=== PATIENT | male | born 1995 | race African-American/Black ===

== ENCOUNTER 2019-06-20 15:29 | Emergency (ER) | payer SELFPAY ==
[~2019-06-20] VITALS: Ht 190.5 cm; Wt 82.0 kg
--- NOTE | 2019-06-20 15:45 | PHYS DOC ---
Past History Past Medical History: No Pertinent History Past Surgical History: No Surgical History Smoking: Non-smoker Alcohol Use: None Drug Use: None Adult General Chief Complaint Chief Complaint: DENTAL PROBLEM HPI HPI 23-year-old male presents to the emergency department with dental pain. He reports that he has had left lower jaw pain for the past 3 weeks, but yesterday started having left-sided head pain radiating to jaw. Patient denies nausea, vomiting, fevers, chest pain, shortness of breath, difficulty swallowing, or trauma. Patient states he has not been to the dentist for this issue. Review of Systems Review of Systems Constitutional: Denies fever or chills Eyes: Denies redness or eye pain HENT: Denies nasal congestion or sore throat. Reports left lower toothache Respiratory: Denies cough or shortness of breath Cardiovascular: Denies chest pain or palpitations GI: Denies abdominal pain, nausea, or vomiting : Denies dysuria or hematuria Musculoskeletal: Denies back pain or joint pain Integument: Denies rash or skin lesions Neurologic: Denies headache, focal weakness or sensory changes Complete systems were reviewed and found to be within normal limits, except as documented in this note. Allergies Allergies Allergies Coded Allergies Type Severity Reaction Last Updated Verified No Known Drug Allergies 06/20/19 No Physical Exam Physical Exam Constitutional: Well developed, well nourished, mild acute distress, non-toxic appearance, crying HENT: Normocephalic, atraumatic, oropharynx moist. Dental eva present of left mandibular third molar. No abscess, erythema, drainage. Eyes: Conjunctiva normal, no discharge Neck: Normal range of motion, no tenderness, supple Cardiovascular: Heart rate normal, regular rhythm Lungs & Thorax: Bilateral breath sounds clear to auscultation, no wheezing Skin: Warm, dry, no erythema, no rash Extremities: No tenderness, ROM intact, no edema Neurologic: Alert and oriented X 3, no focal deficits noted Psychologic: Affect anxious, judgement normal EKG EKG [] Radiology/Procedures Radiology/Procedures [] Course & Med Decision Making Course & Med Decision Making Patient presents to the ED for dental pain and head pain. Patient in mild distress, requesting something for the pain. Dental Block performed in the ED. Empiric antibiotics given. Symptomatic steroid also provided. Patient stable for discharge with outpatient follow-up with PCP/dentist. Dental resources provided. Discussed findings and plan with patient, who acknowledges understanding and agreement. Dragon Disclaimer Dragon Disclaimer This electronic medical record was generated, in whole or in part, using a voice recognition dictation system. Departure Departure: Impression: Primary Impression: Dentalgia Additional Impression: Dental caries Disposition: 01 HOME, SELF-CARE Condition: STABLE Referrals: PCP,NO (PCP) Patient Instructions: Dental Caries, Toothache-Brief Scripts Hydrocodone Bit/Acetaminophen (NORCO 5-325 TABLET) 1 Each Tablet 0.5-1 TAB PO Q6HRS PRN for PAIN, #6 TAB Prov: MARTIN DIEZ DO 06/20/19 Ibuprofen (Ibu) 600 Mg Tablet 1 TAB PO Q6-8HRS PRN for PAIN, #30 TAB 0 Refills Prov: MARTIN DIEZ DO 06/20/19 Prednisone (PREDNISONE) 20 Mg Tablet 2 TAB PO DAILY for dental irritation, #10 TAB Prov: AMRTIN DIEZ DO 06/20/19 Chlorhexidine Gluconate (PERIDEX) 15 Ml Mouthwash 15 ML PO BID for dental infection, #473 ML 0 Refills Prov: MARTIN DIEZ DO 06/20/19 Amoxicillin/Potassium Clav (AUGMENTIN 875-125 TABLET) 1 Each Tablet 1 TAB PO BID for infection for 7 Days, #14 TAB 0 Refills Prov: MARTIN DIEZ DO 06/20/19 Additional Procedures Progress Dental Block 6ml 0.5% Bupivicane with Epi. Location: Inferior alveolar on Left. Verbal consent obtained. Time out performed. Hand hygiene utilized. Anesthesia obtained via a 27-gauge hypodermic needle with (6) mL's of Bupivacaine 0.5% with epinephrine. Patient tolerated procedure well and without difficulty. Problem Qualifiers MARTIN DIEZ DO Jun 20, 2019 15:45
[2019-06-20] MEDS ORDERED: PRED20TA PO (15:56)
[2019-06-20] MEDS ORDERED: CHLO15MO2 PO (15:56)
[2019-06-20] MEDS ORDERED: IBUP-571 PO (15:56)
[2019-06-20] MEDS ORDERED: AMOX1TAB61 PO (15:56)
[2019-06-20] MEDS ORDERED: [UNRECOGNIZED DRUG - OTHER] IJ ONE (16:00)
[2019-06-20] MEDS ORDERED: KETOROLAC 30 MG/ML VIAL. IM ONE (16:15)
[2019-06-20 16:30] VITALS: BP 133/60
[2019-06-20] MEDS ORDERED: HYDR-3165 PO (18:08)
== END 2019-06-20 16:32 | disposition home or self-care (01) ==
LOC: ER 15:29
DX: K02.9 Dental caries, unspecified (principal)
CPT/HCPCS: 64400; 96372; 99284; J1885; J3490